=== PATIENT | female | born 2000 | race Caucasian/White ===

== ENCOUNTER 2022-12-05 08:00 | Outpatient (CLI) | payer OTHER ==
[2022-12-06 20:05] LABS: BACTERIAL VAGINOSIS DNA POSITIVE (NEGATIVE); CANDIDA GROUP DNA POSITIVE (NEGATIVE); CANDIDA KRUSEI DNA NEGATIVE (NEGATIVE); TRICHOMONAS VAGINALIS DNA NEGATIVE (NEGATIVE)
[2022-12-06 20:06] LABS: CANDIDA GLABRATA DNA NEGATIVE (NEGATIVE)
[2022-12-06 21:56] LABS: CHLAMYDIA TRACHOMATIS DNA NEGATIVE (NEGATIVE); NEISSERIA GONORRHOEAE DNA NEGATIVE (NEGATIVE)
[2022-12-08 00:07] LABS: HCV AB Non Reactive (Non Reactive); HIV SCREEN 4TH GENERATION Non Reactive (Non Reactive)
[2022-12-08 04:09] LABS: HSV 1 IGG TYPE SPEC 7.09 index (0.00-0.90); HSV 2 IGG TYPE SPEC <0.91 index (0.00-0.90)
[2022-12-08 06:10] LABS: RPR Non Reactive (Non Reactive)
== END 2022-12-05 23:59 | disposition home or self-care (01) ==
LOC: LAB.N 08:00
PROVIDERS: ATTEND Family Medicine
DX: Z11.3 Encounter for screening for infections with a predominantly sexual mode of transmission (principal)
CPT/HCPCS: 36415; 81514; 86592; 86695; 86696; 86803; 87389; 87491; 87591; 87661

== ENCOUNTER 2023-08-08 10:15 | Outpatient (CLI) | payer OTHER ==
--- NOTE | 2023-08-09 02:12 | Ultrasound Report ---
PROCEDURE: Abdomen Limited INDICATIONS: LIPODYSTROPHY, NOT ELSEWHERE CLASSIFIED TECHNIQUE: Real-time focused scanning was performed of the abdomen, with image documentation. COMPARISONS: None. FINDINGS: No sonographic evidence of hernia is within the epigastric, umbilical, bilateral lower quadrants and inguinal region. IMPRESSION: No sonographic evidence of abdominal or inguinal hernias bilaterally. Reviewed by: Marcela Galeas MD on 08/09/2023 2:11 AM PST Approved by: Marcela Galeas MD on 08/09/2023 2:11 AM PST Station ID: [id number]
== END 2023-08-08 18:00 | disposition home or self-care (01) ==
LOC: DI 10:15
PROVIDERS: ATTEND Surgery Plastic and Reconstructive Surgery
DX: Z01.818 Encounter for other preprocedural examination (principal); E88.1 Lipodystrophy, not elsewhere classified; Z41.8 Encounter for other procedures for purposes other than remedying health state